=== PATIENT | female | born 1950 | race Two or more races ===

== ENCOUNTER 2023-08-25 08:27 | Inpatient (IN) | payer OTHER ==
[~2023-08-25] VITALS: Ht 154.9 cm; Wt 78.9 kg
[2023-08-25] MEDS ORDERED: LIPITOR20 MG PO (08:40)
[2023-08-25] MEDS ORDERED: METFORMIN HCL500 M1 PO (08:40)
--- NOTE | 2023-08-25 08:53 | NUR ---
PTE LLEGA POR FRACTURA EN RODILLA IZQUIERDA Y CELESTINO REFERIDO DEL JVAIER WILEY PARA SER OPERADA EN EL ITZEL DE MANANA. SE LE KUSH S/V Y SE ACOMODA EN MÓNICA.
[2023-08-25] MEDS ORDERED: 0.9 % SODIUM CHLORIDE 1,000 ML IV STA (09:22)
[2023-08-25] MEDS ORDERED: KETOROLAC TROMETHAMINE 60 MG VIAL IM STA (09:23)
--- NOTE | 2023-08-25 09:35 | NUR ---
PACIENTE EVALUADO POR DR. HANNA QUIEN [place] [facility], TADEO JACOBS EDUCA ACERCA DEL MISMO Y REFIERE ENTENDER. SE CANALIZA Y COLECTAN MUESTRAS DE LABORATORIO MEDIANTE MEDIDAS ASEPTICAS. SE ADMINISTRAN MEDICAMENTO ANUJ ORDEN MEDICA
[2023-08-25 10:07] LABS: HEMATOCRIT 37.8 % (36.0-45.00); MEAN CELL VOLUME 90.5 fL (80.00-100.00); MEAN CORPUSCULAR HGB CONC 34.3 g/dl (32.0-36.0); PLATELET COUNT 244 K/uL (150-450); RED BLOOD COUNT 4.18 M/uL (4.00-6.00); RED CELL DISTRIBUTION WIDTH 13.4 % (11.5-14.5)
[2023-08-25 10:28] LABS: PARTIAL THROMBOPLASTIN TIME 27.6 SECONDS (22.0-34.0); PROTHROMBIN TIME 10.5 SECONDS (9.0-11.5)
[2023-08-25 10:40] LABS: ALBUMIN 3.7 gm/dL (3.4-5.0); BILIRUBIN TOTAL 1.16 mg/dL (0.3-1.2); BILIRUBIN,CONJUGATED 0.2 mg/dL (0.0-0.2); BILIRUBIN,UNCONJUGATED 0.96 mg/dL (0.0-0.6); CALCIUM 9.4 mg/dL (8.5-10.1); CREATININE SERUM 0.75 mg/dL (0.55-1.02); GFR 75.54; POTASSIUM 3.9 mEq/L (3.5-5.1); TOTAL PROTEIN 7.4 gm/dL (6.4-8.2)
[2023-08-25 16:18] LABS: URINE APPEARANCE Cloudy; URINE BILIRRUBIN Negative (NEGATIVE); URINE BLOOD Small; URINE COLOR Dark Yellow; URINE GLUCOSE Negative (NEGATIVE); URINE LEUKOCYTE Moderate; URINE NITRATE Positive; URINE PROTEIN Trace (NEGATIVE)
[2023-08-25 16:26] LABS: URINE EPITHELIAL CELLS 87.5 uL (0.0-38.8); URINE RBC 18.6 uL (0.0-20.8); URINE WBC 409.5 uL (0.0-23.2)
[2023-08-25 16:41] LABS: URINE BACTERIA > 9821.5 uL (0.0-1933)
[2023-08-25 16:42] LABS: URINE MUCUS SCANT
[2023-08-25] MEDS ORDERED: hydrALAZINE HCL 20 MG VIAL IV PRN (18:45)
[2023-08-25] MEDS ORDERED: ACETAMINOPHEN 325 MG TABLET PO PRN (18:45)
[2023-08-25] MEDS ORDERED: TRAMADOL HCL 50 MG TABLET PO PRN (18:45)
[2023-08-25] MEDS ORDERED: INSULIN LISPRO 1,000 UNIT/10 ML UNITS SUBCUTANEO PRN (18:45)
[2023-08-25] MEDS ORDERED: 0.9 % SODIUM CHLORIDE 1,000 ML IV SCH (18:45)
[2023-08-25] MEDS ORDERED: DEXTROSE 50 % IN WATER 0.5 G/ML DISP.SYRIN IV PRN (18:45)
[2023-08-25] MEDS ORDERED: ATORVASTATIN CALCIUM 20 MG TABLET PO SCH (21:00)
[2023-08-26 07:47] LABS: HEMATOCRIT 37.7 % (36.0-45.00); HEMOGLOBIN 12.8 g/dL (12.0-15.00); MEAN CELL VOLUME 91.1 fL (80.00-100.00); PLATELET COUNT 215 K/uL (150-450); RED BLOOD COUNT 4.14 M/uL (4.00-6.00); RED CELL DISTRIBUTION WIDTH 13.2 % (11.5-14.5)
[2023-08-26 08:31] LABS: ALBUMIN 3.2 gm/dL (3.4-5.0); BILIRUBIN TOTAL 1.01 mg/dL (0.3-1.2); CALCIUM 8.8 mg/dL (8.5-10.1); CREATININE SERUM 0.67 mg/dL (0.55-1.02); GFR 86.04; GLOBULINA 2.8 G/DL (2.4-3.5); POTASSIUM 5.01 mEq/L (3.5-5.1)
[2023-08-26] MEDS ORDERED: FAMOTIDINE/PF 20 MG/2 ML VIAL IV SCH (09:00)
[2023-08-26] MEDS ORDERED: LISINOPRIL 10 MG TABLET PO SCH (09:00)
[2023-08-26] MEDS ORDERED: LIDOCAINE HCL 1%/EPINEPHRINE 20ML VIAL IJ ONE (15:30)
[2023-08-26] MEDS ORDERED: ISOPROPYL ALCOHOL 30 ML OUNCE TOP ONE (15:30)
[2023-08-26] MEDS ORDERED: BUPIVACAINE HCL/PF 0.25% 30ML VIAL InF ONE (15:30)
[2023-08-26] MEDS ORDERED: POVIDONE-IODINE 3 EA MED..SWAB TOP ONE (15:30)
[2023-08-26] MEDS ORDERED: SODIUM CHLORIDE 0.45 % 1,000 ML IV SCH (16:45)
[2023-08-26] MEDS ORDERED: MORPHINE SULFATE 4 MG/ML CARTRIDGE IV PRN (16:45)
[2023-08-26] MEDS ORDERED: MORPHINE SULFATE 4 MG/ML CARTRIDGE IV NR (16:45)
[2023-08-26] MEDS ORDERED: ONDANSETRON HCL 2 MG/ML VIAL IV PRN (16:45)
[2023-08-26] MEDS ORDERED: CEFAZOLIN SODIUM 1,000 MG VIAL IV SCH (18:00)
[2023-08-26 19:56] LABS: HEMATOCRIT 37.5 % (36.0-45.00); RED BLOOD COUNT 4.13 M/uL (4.00-6.00)
[2023-08-27] MEDS ORDERED: BACTRIM DS TAB1 EACH PO (07:55)
[2023-08-27] MEDS ORDERED: ECOTRIN81 MG PO (07:55)
[2023-08-27] MEDS ORDERED: TRAM1TAB98 PO (07:55)
[2023-08-27] MEDS ORDERED: IRON FUM,PS/FOLIC/BCOMP,C NO.9 1 CAP CAPSULE PO SCH (09:00)
[2023-08-27] MEDS ORDERED: SENNA/DOCUSATE SODIUM 1 TAB TABLET PO SCH (09:00)
[2023-08-27] MEDS ORDERED: BACITRACIN 28.35 GM OINT.TUBE TOP SCH (09:00)
== END 2023-08-27 10:12 | disposition home or self-care (01) | DRG 502 ==
LOC: ER 08:28 → SURH 19:07
PROVIDERS: General Practice; Orthopaedic Surgery Sports Medicine; ADMIT Internal Medicine; ATTEND Internal Medicine
PROC: 0LQR0ZZ Repair Left Knee Tendon, Open Approach (ICD-10-PCS; principal; 2023-08-26 15:00)
DX: S82.042A Displaced comminuted fracture of left patella, initial encounter for closed fracture (principal); W01.10XA Fall on same level from slipping, tripping and stumbling with subsequent striking against unspecified object, initial encounter; Y93.01 Activity, walking, marching and hiking; Y92.480 Sidewalk as the place of occurrence of the external cause; Y99.9 Unspecified external cause status; I10 Essential (primary) hypertension; E11.9 Type 2 diabetes mellitus without complications; Z79.84 Long term (current) use of oral hypoglycemic drugs

== ENCOUNTER 2023-09-19 08:06 | Outpatient (CLI) | payer OTHER ==
[~2023-09-19 08:06] MED LIST: BACTRIM DS TAB1 EACH PO; ECOTRIN81 MG PO; LIPITOR20 MG PO; METFORMIN HCL500 M1 PO; TRAM1TAB98 PO
== END 2023-09-19 08:15 | disposition home or self-care (01) ==
LOC: RAD 08:06
PROVIDERS: ATTEND Orthopaedic Surgery Sports Medicine
DX: S82.015A Nondisplaced osteochondral fracture of left patella, initial encounter for closed fracture (principal)

== ENCOUNTER 2023-09-30 10:24 | Outpatient (CLI) | payer OTHER | END 2023-09-30 10:28 | disposition home or self-care (01) | LOC: NUCLEAR 10:24 | PROVIDERS: ATTEND Specialist | DX: M81.8 Other osteoporosis without current pathological fracture (principal); M81.0 Age-related osteoporosis without current pathological fracture ==

== ENCOUNTER 2023-10-11 08:02 | Outpatient (CLI) | payer OTHER | END 2023-10-11 08:07 | disposition home or self-care (01) | LOC: RAD 08:02 | PROVIDERS: ATTEND Orthopaedic Surgery Sports Medicine | DX: S82.025A Nondisplaced longitudinal fracture of left patella, initial encounter for closed fracture (principal) ==